=== PATIENT | male | born 1940 | race Caucasian/White ===

== ENCOUNTER → 2020-02-12 11:22 | Outpatient (REF) | payer MEDICARE, SELFPAY ==
--- NOTE | 2020-02-12 11:29 | CA_ITS ---
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 The visually estimated ejection fraction is between 45-50%. - The left atrium is severely dilated. - No obvious valvular pathology seen on this study. Findings Left Ventricle Normal left ventricular cavity size. There is mildly increased left ventricular wall thickness. The left ventricular systolic function is mildly decreased. The visually estimated ejection fraction is between 45-50%. There is no evidence of regional wall motion abnormalities. Diastolic function is indeterminate on the basis of available data. Right Ventricle Normal right ventricular cavity size and systolic function. Atria The left atrium is severely dilated. The right atrium is moderately dilated. Aortic Valve There is a normal trileaflet aortic valve. There is no aortic valve stenosis. There is no aortic valve regurgitation. Mitral Valve The mitral valve appears normal. There is trace mitral valve regurgitation. There is no mitral valve stenosis. Pulmonic Valve The pulmonic valve was not well visualized. Tricuspid Valve The tricuspid valve was not well visualized. There is no tricuspid valve regurgitation. The pulmonary artery systolic pressure is normal. Great Vessels The aortic annulus, sinuses of valsalva, and asc aorta are normal in size. Venous The inferior vena cava is normal in size and collapses greater than 50% with inspiration. Pericardium/Pleural There is no evidence of pericardial effusion. Prior Study Comparison No significant change compared to prior study dated: 11/18/2014. Recommendations, Care & Conclusions No obvious valvular pathology seen on this study. Measurements 2D Linear Measurements IVSd: 1.22 0.6-0.9/0.6-1.0 cm LVIDd: 4.61 3.9-5.3/4.2-5.9 cm LVIDd Index: 2.41 2.4-3.2/2.2-3.1 cm/m2 LVIDs: 3.28 2.0-3.6 cm LVPWd: 1.26 0.7-1.1 cm Ao Root: 4.00 2.1-3.5 cm LA Diam: 4.10 2.7-3.8/3.0-4.0 cm LAIDs Index: 2.15 1.5-2.3 cm/m2 LV Mass: 268.77 67-162/88-224 g LV Mass Index: 140.72 43-95/49-115 g/m2 LVOT Diam: 2.20 3.0+(-)1.3 cm 2D Systolic Function EF 4C: 45.30 >55% EF 2C: 45.40 >55% EF BiP: 43.40 >55% Mitral Valve MV Pk E: 0.81 MV Decel Time: 197.00 E'Medial: 5.61 E/E' Med: 14.30 PHT: 58.00 MVA PHT: 3.79 Decel Brooks: 4.08 Aortic Valve AoV Pk Hayden: 1.12 AoV Mn Hayden: 0.68 AoV VTI: 0.25 AoV Pk Grad: 5.00 Aov Mn Grad: 2.00 MOISES Cont.VTI: 2.30 LVOT LVOT Pk Hayden: 0.70 LVOT Mn Hayden: 0.41 LVOT VTI: 0.15 LVOT Pk Grad: 2.00 LVOT Mn Grad: 1.00 LVOT Diam: 2.20 LVOT Area: 3.80 Diastolic Function MV Pk E: 0.81 E'Medial: 5.61 E/E' Med: 14.30 Tricuspid Valve TR Pk Hayden: 2.46 TR Pk Grad: 24.00 Great Vessels Aorta Ao Root-2D: 4.00 2.0-3.7 cm Ao Asc: 3.60 2.1-3.4 cm Pulmonary Valve PV Pk Hayden: 0.81 Peak PV Grad: 3.00 Updated in Other Vendor System with Status of Final Weston Melgar MD electronically signed on 02/13/2020 12:20:20 PM with status of Final
== END ==
LOC: HO.CARD 11:22
PROVIDERS: PCP Internal Medicine; Visit Provider Internal Medicine
DX: I10 Essential (primary) hypertension (principal); R22.43 Localized swelling, mass and lump, lower limb, bilateral
CPT/HCPCS: 93306

== ENCOUNTER 2020-04-29 11:00 | Outpatient (RCR) | payer MEDICARE, SELFPAY | END 2020-06-04 08:48 | disposition other institution (70) | LOC: HO.PT 11:00 | PROVIDERS: Visit Provider Physician Assistant | DX: M48.061 Spinal stenosis, lumbar region without neurogenic claudication (principal) | CPT/HCPCS: 97110; 97162; 97530 ==

== ENCOUNTER → 2020-05-28 09:18 | Outpatient (BNVA) | payer MEDICARE, SELFPAY | PROVIDERS: PCP Internal Medicine; Visit Provider Urology | DX: Z13.89 Encounter for screening for other disorder (principal) | CPT/HCPCS: Q3014 ==

== ENCOUNTER 2020-12-08 10:20 | Outpatient (REF) | payer MEDICARE, SELFPAY ==
--- NOTE | ~2020-12-08 | XR_ITS ---
EXAMINATION: XR CERVICAL SPINE CLINICAL INFORMATION: Neck pain. COMPARISON: None TECHNIQUE: Seven images are submitted including oblique views. FINDINGS: Significant degeneration here. Significant anterior osteophyte from C2 to C5. Significant degeneration of the posterior elements bilaterally. The oblique imaging showing significant foraminal encroachment on the left at C5-C6 and on the right, more moderate encroachment at C5-6 and C6-7. Cannot exclude an element of chronic compression injury at C6 and C7. XR/XR cervical spine min 6V IMPRESSION: Significant degenerative changes.
== END 2020-12-08 10:21 | disposition home or self-care (01) ==
LOC: HO.XRAY 10:20
PROVIDERS: Absent Provider Internal Medicine; PCP Internal Medicine; Visit Provider Nurse Practitioner Family
DX: M54.2 Cervicalgia (principal)
CPT/HCPCS: 72052

== ENCOUNTER 2021-01-20 11:30 | Emergency (ER) | payer MEDICARE, SELFPAY ==
--- NOTE | ~2021-01-20 | XR_ITS ---
EXAMINATION: XR ABDOMEN KUB CLINICAL INDICATION: Vomiting COMPARISON: Previous CT of the abdomen and pelvis May 2016 TECHNIQUE: AP view of the abdomen. FINDINGS: There are no dilated loops of bowel to suggest obstruction. There is no evidence of free air. No calcifications are seen. There are degenerative changes of the spine and hip joints. XR/XR KUB IMPRESSION: No evidence of obstruction or free air.
[2021-01-20 12:06] VITALS: BP 151/87; PULSE 76; RESP 16; TEMP 36.1; O2SAT 97; BMI 32.3
--- NOTE | 2021-01-20 12:45 | ED_ITS ---
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 He states before 10:00 this morning he was feeling well and had no complaints. He states that after he vomited upon arival he feels good as new. He states he ate a pastry with ground beef and last night that he bough from a restaurant and he thinks that's what made him puke. He has no complaints at this time. He denies abdominal pain, changes in bowel habits, fevers, chills, chest pain, SOB, diarrhea, recent sick contacts, recent travel. He has no previous abdominal surgeries. PMHX significant for cognitive impairment, HLD, HTN, and PAF MD elicited complaint: nausea and vomiting (X1 uppon arrival.) Onset (ago): hour(s) (3 hours. Resolved after vomiting ) Description of vomiting: food contents Associated nausea: Yes Associated abdominal pain: No Location of pain: none Exacerbating factors: none Relieving factors: other (nausea resolved with one episode of vomiting ) Associated symptoms: denies other symptoms Related Data Home Medications Medication Instructions Recorded Confirmed aspirin 81 mg tablet,delayed 81 mg PO DAILY 05/28/20 release azelastine 137 mcg (0.1 %) nasal 2 spray INTRANASAL BID PRN 05/28/20 spray aerosol dabigatran etexilate 150 mg capsule 150 mg PO BID 05/28/20 donepezil 10 mg tablet 10 mg PO BEDTIME 05/28/20 fluticasone propionate 50 1 spray INTRANASAL BID PRN 05/28/20 mcg/actuation nasal spray,suspension gabapentin 100 mg capsule 0 mg PO 05/28/20 latanoprost 0.005 % eye drops 1 drp OPHTHALMIC (EYE) BEDTIME 05/28/20 levothyroxine 100 mcg tablet 100 mcg PO QAM 05/28/20 memantine 10 mg tablet 10 mg PO BID 05/28/20 metoprolol succinate 50 mg 50 mg PO QAM 05/28/20 tablet,extended release 24 hr nifedipine 60 mg tablet,extended 60 mg PO BEDTIME 05/28/20 release 24 hr nifedipine 90 mg tablet,extended 90 mg PO BEDTIME 05/28/20 release pantoprazole 40 mg tablet,delayed 40 mg PO DAILY 05/28/20 release tramadol 50 mg tablet 50 mg PO Q12H PRN 05/28/20 Previous Rx's Medication Instructions Recorded mirabegron 25 mg tablet,extended 25 mg PO DAILY 30 Days #30 tab 09/14/20 release 24 hr (Myrbetriq) tamsulosin 0.4 mg capsule 0.8 mg PO BEDTIME 90 Days #180 cap 12/04/20 Allergies Allergy/AdvReac Type Severity Reaction Status Date / Time verapamil [Verapamil] Allergy Unknown UNKNOWN Unverified 05/28/20 09:35 RIVAS Inhibitors AdvReac Mild ANGIOEDEMA Unverified 05/28/20 09:35 [Rivas Inhibitors] dust Allergy Unknown Unknown Uncoded 05/28/20 09:35 Review of Systems Review of Systems: Constitutional : No Weight loss, No Fever, No Chills, No Fatigue, No Malaise ENT/Mouth : No sore throat, No Rhinorrhea Eyes: No Eye Pain, No Swelling, No Redness Cardiovascular : No Chest Pain, No SOB, No Dyspnea on Exertion, No Orthopnea, No Edema, No Palpitations Respiratory : No Cough, No Sputum, No Wheezing Gastrointestinal : positive Nausea, positive Vomiting, No Diarrhea, No Constipation, No abdominal Pain, No Hematochezia, No Melena Genitourinary : No Dysuria, No Urinary Frequency, No Hematuria, Musculoskeletal : No joint pain, No Myalgias, No Joint Swelling Skin : No Skin Lesions, No rash Neuro : No Weakness, No Numbness, No Dizziness, No Headache Psych : No Anxiety/Panic, No Depression Heme/Lymph: No Bruising, No Bleeding,No Lymphadenopathy Endocrine : No Polyuria, No Polydipsia All other systems reviewed and are negative Gastrointestinal: Gastrointestinal: Reports nausea PMFSH Past Medical History Attestation statement: The following information was validated with the patient. Medical History BPH with obstruction/lower urinary tract symptoms Cognitive impairment HLD (hyperlipidemia) HTN (hypertension) PAF (paroxysmal atrial fibrillation) Urge incontinence Social History Social History (Updated 01/20/21 @ 12:46 by Jackie Rivers DO) Patient Tobacco Use Status: Never used Tobacco Use of substances other than those prescribed or required for medical reasons: No Advance Directives: No Advance Directives Information Provided: No Physical Exam Vital Signs: Vital Signs: Last Vital Signs Temp 97.6 F 01/20/21 14:51 Pulse 89 01/20/21 14:51 Resp 15 01/20/21 14:51 BP 137/101 H 01/20/21 14:51 Pulse Ox 93 01/20/21 14:51 Body Mass Index 32.3 Appearance: Alert. Oriented X3. No acute distress. Eyes: Pupils equal, round and reactive to light. ENT: Pharynx normal. Neck: Normal inspection. Neck supple. CVS: Normal heart rate and rhythm. Pulses normal. Respiratory: No respiratory distress. Breath sounds normal. Abdomen: Soft and nontender. Normoactive bowel sounds Skin: Skin warm and dry. Normal skin color. Normal skin turgor. Extremities: No lower extremity edema. No calf ttp Neuro: Oriented X 3. No motor deficit. No sensory deficit. 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 He states he thinks he at a bad beef pastry last night. He is a poor historian. He reports no other complaints. Based of the patient history and patients vague complaints the following workup will be done Plan- EKG, KUB, UA, CBC, COVID, Liver panel, Mag, BMP, lipase, tropX2 Lab Data Result diagrams: 01/20/21 13:28 01/20/21 13:28 Labs: Lab Results 01/20/21 01/20/21 01/20/21 Range/Units 13:28 13:28 13:28 WBC 7.2 (4.8-10.8) X10*3/uL RBC 4.28 L (4.60-5.80) X10*6/uL Hgb 13.6 L (14.0-18.0) g/dl Hct 42.6 (42-52) % MCV 99.5 H (80-98) fL MCH 31.8 (27.0-33.0) pg MCHC 31.9 (31.0-36.0) g/dl RDW 13.2 (11.0-16.0) % Plt Count 164 (160-400) X10*3/uL MPV 10.2 (9.4-12.4) fL Immature Gran % (Auto) 0.4 (0.0-0.4) % Neut % (Auto) 71.9 (45-73) % Lymph % (Auto) 20.0 (20-40) % [place] % (Auto) 5.8 (2-11) % Eos % (Auto) 1.8 (0-4) % Baso % (Auto) 0.1 (0-2) % Lymph # (Auto) 1.4 (1.2-4.9) X10*3/uL [place] # (Auto) 0.4 (0.1-1.2) X10*3/uL Eos # (Auto) 0.1 (0.0-0.4) X10*3/uL Baso # (Auto) 0.0 (0.0-0.2) X10*3/uL Abs Immat Gran (auto) 0.03 (0.00-0.03) X10*3/uL Absolute Neuts (auto) 5.2 (2.0-8.3) X10*3/uL Absolute Nucleated RBC 0.000 (0.0-0.012) X10*3/uL Nucleated RBC % (auto) 0.0 (0.0-0.2) /100WBC Sodium 146 H (135-145) mmol/L Potassium 4.3 (3.3-5.1) mmol/L Chloride 109 H (96-108) mmol/L Carbon Dioxide 28 (22-29) mmol/L Anion Gap 13 (12-20) BUN 20 H (9-16) mg/dL Creatinine 1.31 (0.5-1.4) mg/dL Estim Creat Clear Calc 48.2 Estimated GFR 53 Random Glucose 122 H (60-115) mg/dL Calcium 9.4 (8.4-10.2) mg/dL Magnesium 2.0 (1.6-2.6) mg/dL Total Bilirubin 0.5 (0.0-1.0) mg/dL Direct Bilirubin 0.2 (0.0-0.5) mg/dL AST 28 (5-37) U/L ALT 19 (0-40) U/L Alkaline Phosphatase 88 (39-117) U/L Troponin I High Sens (<3.5-35.0) ng/L Total Protein 8.2 H (6.5-8.0) g/dL Albumin 4.2 (3.5-5.0) g/dL Lipase 107 H (8-78) U/L Urine Color Urine Appearance Urine pH (5.0-8.0) Ur Specific [place] (1.005-1.025) Urine Protein (NEG-TRACE) MG/DL Urine Glucose (UA) (NEG) MG/DL Urine Ketones (NEG) MG/DL Urine Blood (NEG) Urine Nitrite (NEG) Ur Leukocyte Esterase (NEG) Urine RBC (0) /HPF Urine WBC (0-4) /HPF Ur Squamous Epith Cells /LPF Ur Renal Epithelial Cell /LPF Urine Bacteria /LPF Urine Mucus /LPF COVID-19 (JIM) Negative (Negative) COVID-19 Clin Com See Note 01/20/21 01/20/21 Range/Units 13:28 14:48 WBC (4.8-10.8) X10*3/uL RBC (4.60-5.80) X10*6/uL Hgb (14.0-18.0) g/dl Hct (42-52) % MCV (80-98) fL MCH (27.0-33.0) pg MCHC (31.0-36.0) g/dl RDW (11.0-16.0) % Plt Count (160-400) X10*3/uL MPV (9.4-12.4) fL Immature Gran % (Auto) (0.0-0.4) % Neut % (Auto) (45-73) % Lymph % (Auto) (20-40) % [place] % (Auto) (2-11) % Eos % (Auto) (0-4) % Baso % (Auto) (0-2) % Lymph # (Auto) (1.2-4.9) X10*3/uL [place] # (Auto) (0.1-1.2) X10*3/uL Eos # (Auto) (0.0-0.4) X10*3/uL Baso # (Auto) (0.0-0.2) X10*3/uL Abs Immat Gran (auto) (0.00-0.03) X10*3/uL Absolute Neuts (auto) (2.0-8.3) X10*3/uL Absolute Nucleated RBC (0.0-0.012) X10*3/uL Nucleated RBC % (auto) (0.0-0.2) /100WBC Sodium (135-145) mmol/L Potassium (3.3-5.1) mmol/L Chloride (96-108) mmol/L Carbon Dioxide (22-29) mmol/L Anion Gap (12-20) BUN (9-16) mg/dL Creatinine (0.5-1.4) mg/dL Estim Creat Clear Calc Estimated GFR Random Glucose (60-115) mg/dL Calcium (8.4-10.2) mg/dL Magnesium (1.6-2.6) mg/dL Total Bilirubin (0.0-1.0) mg/dL Direct Bilirubin (0.0-0.5) mg/dL AST (5-37) U/L ALT (0-40) U/L Alkaline Phosphatase (39-117) U/L Troponin I High Sens 9.2 (<3.5-35.0) ng/L Total Protein (6.5-8.0) g/dL Albumin (3.5-5.0) g/dL Lipase (8-78) U/L Urine Color YELLOW Urine Appearance CLEAR Urine pH 6.0 (5.0-8.0) Ur Specific [place] >= 1.030 H (1.005-1.025) Urine Protein 1+ H (NEG-TRACE) MG/DL Urine Glucose (UA) NEG (NEG) MG/DL Urine Ketones NEG (NEG) MG/DL Urine Blood 1+ H (NEG) Urine Nitrite NEG (NEG) Ur Leukocyte Esterase NEG (NEG) Urine RBC 1-4 (0) /HPF Urine WBC 0 (0-4) /HPF Ur Squamous Epith Cells 1+ /LPF Ur Renal Epithelial Cell TRACE /LPF Urine Bacteria TRACE /LPF Urine Mucus 2+ /LPF COVID-19 (JIM) (Negative) COVID-19 Clin Com ECG Data Attestation: I personally reviewed and interpreted this ECG as follows: ECG interpretation date: 01/20/21 ECG interpretation time: 14:06 Interpretation: Rate: 79 Rhythm: afib [place]: left Normal QRS complex. ST T wave : nonspecific, no OMKAR< inverted t waves in anterior lateral leads qTC: normal prior studies: changed from 2015 The study has been interpreted contemporaneously by me. . Discharge Plan Discharge Clinical Impression: Nausea Instructions: Acute Nausea and Vomiting (ED) Additional Instructions: return to ED for any worsening symptoms or concerns Prescriptions: No Action Myrbetriq 25 mg tablet extended release 24 hr 25 mg PO DAILY 30 Days Qty: 30 RF: 6 tamsulosin 0.4 mg capsule 0.8 mg PO BEDTIME 90 Days Qty: 180 RF: 0 gabapentin 100 mg capsule 0 mg PO RF: 0 tramadol 50 mg tablet 50 mg PO Q12H PRN (Reason: severe pain) RF: 0 aspirin 81 mg tablet,delayed release (DR/EC) 81 mg PO DAILY RF: 0 pantoprazole 40 mg tablet,delayed release (DR/EC) 40 mg PO DAILY RF: 0 levothyroxine 100 mcg tablet 100 mcg PO QAM RF: 0 nifedipine 60 mg tablet extended release 24hr 60 mg PO BEDTIME RF: 0 Pradaxa 150 mg capsule 150 mg PO BID RF: 0 fluticasone propionate 50 mcg/actuation spray,suspension 1 spray intranasal BID PRNRF: 0 memantine 10 mg tablet 10 mg PO BID RF: 0 donepezil 10 mg tablet 10 mg PO BEDTIME RF: 0 metoprolol succinate 50 mg tablet extended release 24 hr 50 mg PO QAM RF: 0 azelastine 137 mcg (0.1 %) aerosol,spray 2 spray intranasal BID PRN (Reason: congestion) RF: 0 nifedipine 90 mg tablet extended release 90 mg PO BEDTIME RF: 0 latanoprost 0.005 % drops 1 drp ophthalmic (eye) BEDTIME RF: 0 Print Language: Pashto
--- NOTE | 2021-01-20 12:51 | ECG_ITS ---
Test Reason : NAUSEA VOMIT Blood Pressure : / mmHG Vent. Rate : 079 BPM Atrial Rate : 326 BPM P-R Int : 000 ms QRS Dur : 114 ms QT Int : 416 ms P-R-T Axes : 000 -44 -16 degrees QTc Int : 477 ms Atrial fibrillation Left axis deviation ST & T wave abnormality, consider anterolateral ischemia Prolonged QT Abnormal ECG When compared with ECG of 21-DEC-2014 23:15, Significant changes have occurred Referred By: Jackie Rivers Electronically Signed By:KATELYN NAJERA
[2021-01-20 13:35] LABS: MANUAL DIFF FLAG NO
[2021-01-20 13:36] LABS: Basophils Percent Auto 0.1 % (0-2); Eosinophils Absolute Auto 0.1 X10*3/uL (0.0-0.4); Eosinophils Percent Auto 1.8 % (0-4); Hematocrit 42.6 % (42-52); Hemoglobin 13.6 g/dl (14.0-18.0); Imm Gran Abs Auto 0.03 X10*3/uL (0.00-0.03); Imm Gran Pct Auto 0.4 % (0.0-0.4); Lymphocytes Absolute Auto 1.4 X10*3/uL (1.2-4.9); Mean Corpuscular HGB Conc 31.9 g/dl (31.0-36.0); Mean Corpuscular Hemoglobin 31.8 pg (27.0-33.0); Mean Corpuscular Volume 99.5 fL (80-98); Mean Platelet Volume 10.2 fL (9.4-12.4); Monocytes Absolute Auto 0.4 X10*3/uL (0.1-1.2); Monocytes Percent Auto 5.8 % (2-11); Neutrophils Absolute Auto 5.2 X10*3/uL (2.0-8.3); Neutrophils Percent Auto 71.9 % (45-73); Platelet Count 164 X10*3/uL (160-400); Red Blood Count 4.28 X10*6/uL (4.60-5.80); Red Cell Distribution Width 13.2 % (11.0-16.0); White Blood Count 7.2 X10*3/uL (4.8-10.8)
[2021-01-20 13:51] LABS: COVID-19 Test Negative (Negative); IDNOW Serial# 9DD0AD1C
[2021-01-20 14:01] LABS: Troponin-I High Sensitivity 9.2 ng/L (<3.5-35.0)
[2021-01-20 14:03] LABS: Alanine Aminotransferase 19 U/L (0-40); Albumin Level 4.2 g/dL (3.5-5.0); Alkaline Phosphatase 88 U/L (39-117); Anion Gap 13 (12-20); Aspartate Amino Transferase 28 U/L (5-37); Bilirubin Direct 0.2 mg/dL (0.0-0.5); Bilirubin Total 0.5 mg/dL (0.0-1.0); Blood Urea Nitrogen 20 mg/dL (9-16); Calcium 9.4 mg/dL (8.4-10.2); Carbon Dioxide 28 mmol/L (22-29); Chloride 109 mmol/L (96-108); Creatinine Clr Calc Pharmacy 48.2; Estimated Glomerular Filt Rate 53; Glucose Random 122 mg/dL (60-115); Lipase 107 U/L (8-78); Potassium 4.3 mmol/L (3.3-5.1); Sodium 146 mmol/L (135-145); Total Protein 8.2 g/dL (6.5-8.0)
[2021-01-20 14:51] VITALS: BP 137/101; PULSE 89; RESP 15; TEMP 36.4; O2SAT 93
[2021-01-20 15:05] LABS: Appearance Urine CLEAR; Color Urine YELLOW; Glucose Urine UA NEG (NEG); Leukocyte Esterase Urine NEG (NEG); Nitrite Urine NEG (NEG); Specific Gravity - Urine >= 1.030 (1.005-1.025); UACC Culture Trigger NO; Urine Blood 1+ (NEG); Urine Ketones NEG (NEG); Urine Protein 1+ MG/DL (NEG-TRACE)
[2021-01-20 15:16] LABS: Mucus Urine 2+ /LPF; Renal Epithelial Cells Urine TRACE /LPF; Squamous Epithelial Cell Urine 1+ /LPF
[2021-01-20 15:17] LABS: Bacteria Urine TRACE /LPF; WBC Urine 0 /HPF (0-4)
[2021-01-20 16:23] VITALS: BP 141/92; PULSE 78; RESP 16; TEMP 36.7; O2SAT 96
== END 2021-01-20 18:15 | disposition home or self-care (01) ==
PROVIDERS: Emergency Provider Emergency Medicine; PCP Internal Medicine
DX: R11.2 Nausea with vomiting, unspecified (principal); R19.7 Diarrhea, unspecified; R10.9 Unspecified abdominal pain; Z20.822 Contact with and (suspected) exposure to COVID-19; Z79.899 Other long term (current) drug therapy
CPT/HCPCS: 36415; 74018; 80048; 80076; 81001; 81003; 83690; 83735; 84484; 85025; 87635; 93005; 99283; 99284

== ENCOUNTER 2022-03-31 08:47 | Outpatient (REF) | payer MEDICARE, SELFPAY ==
--- NOTE | ~2022-03-31 | US_ITS ---
EXAMINATION: US THYROID CLINICAL INFORMATION: Hypothyroidism. COMPARISON: Ultrasound soft tissue head/neck thyroid dated 08/23/2017 and 08/16/2016. TECHNIQUE: Linear transducer grayscale and color Doppler examination with attention to the region of the thyroid. FINDINGS: SIZE: Measurements of the thyroid lobes and nodules are given in sagittal, anteroposterior and transverse dimensions respectively. Right Thyroid Lobe: 4.2 x 0.9 x 1.7 cm, volume 3.2 mL. Previously 4.4 x 1.2 x 1.7 cm, volume 4.7 mL. Parenchyma: The gland echotexture is normal. Thyroid vascularity is slightly increased. Left Thyroid Lobe: 3.1 x 0.9 x 1.2 cm, volume 1.8 mL. Previously 4.4 x 1.0 x 1.6 cm, volume 3.7 mL. Parenchyma: The gland echotexture is slightly heterogeneous. Thyroid vascularity is slightly increased. Isthmus: 0.1 cm in maximum AP dimension. Previously 0.2 cm. Estimated total number of nodules greater than or equal to 1 cm: 0. Burner Tender nodules are described as follows: 1. Location: Right mid. Size: 0.8 x 0.3 x 0.6 cm, volume 0.09 mL. Previously: 0.9 x 0.5 x 1.1 cm, volume 0.3 mL. Nodule characteristics: Composition: Solid/almost completely solid (2). Echogenicity: Isoechoic (1). Shape: Not taller than wide (0). Margins: Smooth (0). Echogenic Foci: None (0). ACR TI-RADS total points: 3 ACR TI-RADS category: 3 Significant change in size (>/= 20% in 2 dimensions and minimal increase of 2 mm or 50% or greater increase in volume): Change in features: Change in ACR TI-RADS risk category: NODES: No lymphadenopathy is seen in the tissue surrounding the thyroid gland. US/US thyroid IMPRESSION: Small thyroid gland. Stable right thyroid nodule. Previously identified left thyroid cystic nodule not appreciated. ACR TI-RADS RECOMMENDATION REFERENCE: Ultrasound-guided fine-needle aspiration, followup ultrasound, no further follow up. * TR1 (0 point) and TR 2 (2 points): No FNA or follow up * TR3 (3 points): FNA if more than or equal to 2.5 cm in maximum dimension, followup ultrasound in 1, 3 and 5 years if 1.5 to 2.4 cm in maximum dimension. * TR4 (4-6 points): FNA if more than or equal to 1.5 cm in maximum dimension, followup ultrasound in 1, 2, 3 and 5 years if 1 to 1.4 cm in maximum dimension. * TR5 (more than or equal to 7 points): FNA if more than or equal to 1 cm in maximum dimension, followup ultrasound every year for 5 years if 0.5 to 0.9 cm in maximum dimension. * TR3, TR4 or TR5 nodules that are below the size threshold for follow up receive no follow up.
== END 2022-03-31 08:48 | disposition home or self-care (01) ==
LOC: HO.US 08:47
PROVIDERS: Visit Provider Internal Medicine
DX: E03.9 Hypothyroidism, unspecified (principal)
CPT/HCPCS: 76536

== ENCOUNTER 2023-01-26 18:18 | Outpatient (REF) | payer MEDICARE, SELFPAY | END 2023-01-26 18:19 | disposition home or self-care (01) | LOC: HO.HHCLNP 18:18 | PROVIDERS: Visit Provider Registered Nurse | DX: G89.29 Other chronic pain (principal) | CPT/HCPCS: 87070; 87147 ==

== ENCOUNTER 2023-01-30 14:54 | Outpatient (AMB) | payer MEDICARE, SELFPAY ==
--- NOTE | 2023-01-30 14:57 | A.OFFVIS_ITS ---
Intake Vital Signs 01/30/23 14:58 Height 5 ft 6 in Weight 192 lb BMI 31.0 BP 120/71 Blood Pressure Location Rt brachial Position Sitting Pulse 63 Intake Visit Reasons: Abdomnial pain Intake Note: Patient presents to in office visit today as a new patient for abdominal pain. CC:Patient c/o abdominal pain. His PCP reports that before every meal the PT takes an ahmet seltzer because the PT states this is the only way he gets an appetite. He also reports occasional acid reflux. Unknown when last colonoscopy was done. Coagulating Bath Mixer Required: Yes Accompanied by: PROM BURN OFF OPERATOR Allergies verapamil [Verapamil] Allergy (Unknown, Verified 01/30/23 15:05) UNKNOWN RIVAS Inhibitors [Rivas Inhibitors] Adverse Reaction (Mild, Verified 01/30/23 15:05) ANGIOEDEMA dust Allergy (Unknown, Uncoded 05/28/20 09:35) Unknown Medication List - Last Reconciled 01/30/23 by Rashida Mcconnell, [facility]- aspirin 81 mg PO DAILY atorvastatin 80 mg PO DAILY azelastine 2 sprays intranasal BID PRN dabigatran etexilate 150 mg PO BID docusate sodium 100 mg PO DAILY donepezil 10 mg PO BEDTIME fluticasone propionate 50 mcg/actuation 1 spray intranasal BID PRN gabapentin 100 mg PO latanoprost 0.005% 1 drp ophthalmic (eye) BEDTIME levothyroxine 100 mcg PO QAM melatonin 5 mg PO BEDTIME memantine 10 mg PO BID metoprolol succinate ER 50 mg PO QAM mirabegron ER (Myrbetriq) 25 mg PO DAILY 90 days multivitamin 1 tab PO DAILY nifedipine ER 60 mg PO BEDTIME nifedipine ER 90 mg PO BEDTIME nifedipine ER 30 mg PO DAILY pantoprazole 40 mg PO DAILY tamsulosin 0.8 mg (2 x 0.4 mg) PO BEDTIME 90 days tramadol 50 mg PO Q12H PRN HPI Abdomnial pain HPI Details 82-year-old male with past medical histo ry of PAF, hyperlipidemia, hypertension, BPH is here today for initial consultation. Patient is accompanied by his PROM BURN OFF OPERATOR. PROM BURN OFF OPERATOR states that patient has been complaining of epigastric discomfort and postprandial abdominal bloating. Frequently before he eats he is asking for Ahmet-[place]. Patient reports to be feeling bloated. Denies any dyspepsia, dysphagia or odynophagia. Reports to be constipated. No bowel movement sometimes for 3-4 days. Patient denies any melena, hematochezia, unintentional weight loss or ribbon like stools. Patient denies any vomiting. Patient is not on any particular diet. Patient mostly eats [place]ian food. Not many vegetables. Patient drinks very little water. [facility] Medical History PAF (paroxysmal atrial fibrillation) Cognitive impairment HLD (hyperlipidemia) HTN (hypertension) Urge incontinence BPH with obstruction/lower urinary tract symptoms Surgical History H/O eye surgery Social History Alcohol intake: current Alcohol intake frequency: former alcohol drinker Patient Tobacco Use Status: Never used Tobacco Review of Systems Const Denies weight gain and Denies weight loss ENT Reports no additional complaints, Denies dysphagia and Denies odynophagia Card Reports no additional complaints Resp Reports no additional complaints GI Denies abdominal pain, Denies belching, Denies melena, Reports bloating, Denies change in bowel habits, Reports constipation, Denies dysphagia, Denies excessive flatus, Denies dyspepsia, Denies heartburn, Denies diarrhea, Denies loose stools, Reports nausea, Denies odynophagia and Denies vomiting Reports no additional complaints Musc Reports no additional complaints Neuro Reports no additional complaints Psych Reports no additional complaints Endo Reports no additional complaints Physical Exam Vital Signs: Last Vital Signs Pulse 63 01/30/23 14:58 BP 120/71 01/30/23 14:58 BMI result Body Mass Index 31.0 Const General: healthy appearing, no acute distress and well developed Nutritional Appearance: obese Orientation/consciousness: patient oriented x3 HEENT Head: Yes normal to inspection, Yes normocephalic and Yes atraumatic Face and sinus: Yes normal facial exam Mouth: Normal oral and palatal mucosa present Throat: Yes posterior oropharynx normal, Yes tonsils normal and Yes uvula midline Eyes General: appearance normal, both eyes and all related structures Neck Neck: Yes normal visual inspection, Yes full ROM and Yes trachea midline Thyroid: Thyroid normal Resp Effort & Inspection: normal respiratory effort, able to speak in complete sentences, no tracheal deviation and symmetric chest movement Auscultation: clear to auscultation bilaterally Cardio Rate: regular rate Heart sounds: S1 normal heart sound present and S2 normal heart sound present GI Inspection: Yes normal to inspection, No distended and Yes obesity Palpation (GI): Soft to palpation, not firm, nontender and No hepatosplenomegaly present Auscultation: normal bowel sounds General: Yes no CVA tenderness Back/Spine/Pelvis Back: no CVA tenderness Skin General skin exam: elasticity normal, turgor normal and dry skin Neuro General: patient oriented x3 Psych Appearance: grossly normal Mental Status: mental status grossly normal Speech and movement: Normal speech and movement present Assessment & Plan Assessment & Plan (1) Nausea: Code(s): R11.0 - Nausea (2) Postprandial abdominal bloating: Code(s): R14.0 - Abdominal distension (gaseous) (3) IBS (irritable bowel syndrome): Code(s): K58.9 - Irritable bowel syndrome without diarrhea Qualifiers: Irritable bowel syndrome type: without diarrhea Qualified Code(s): K58.9 - Irritable bowel syndrome without diarrhea (4) Constipation: Code(s): K59.00 - Constipation, unspecified Qualifiers: Constipation type: slow transit constipation Qualified Code(s): K59.01 - Slow transit constipation Plan Will send patient for lab work. Patient does report epigastric discomfort and postprandial abdominal bloating. Will check for pancreatic insufficiency, pancreatitis. Will check liver profile. Patient reports to be constipated will start him on MiraLax and senna. Patient will follow-up in the office in 6 months, sooner on as needed basis. Both patient and PROM BURN OFF OPERATOR are agreeable to this plan and verbalize understanding of instructions. They were given the opportunity to ask questions and all questions answered. Thank you for allowing me to participate in his care Orders: Orders Vitamin B12 and Folate 01/30/23 R11.0 - Nausea Vitamin D 25-OH (D2 and D3) 01/30/23 R11.0 - Nausea Pancreatic Elastase-1 01/30/23 R14.0 - Abdominal distension (gaseous) Lipase 01/30/23 R10.9 - Unspecified abdominal pain Liver Panel 01/30/23 R11.0 - Nausea Medications: New polyethylene glycol 3350 (Miralax) 17 grams PO DAILY 510 grams 2RF sennosides (Natural Senna Laxative) 17.2 mg (2 x 8.6 mg) PO BEDTIME 60 tabs 3RF constipation K59.00 - Constipation, unspecified Coding Level of Care Code New Pt Level 4 (71711) Diagnoses Nausea R11.0 Postprandial abdominal bloating R14.0 Irritable bowel syndrome without diarrhea K58.9 Irritable bowel syndrome type: without diarrhea Slow transit constipation K59.01 Constipation type: slow transit constipation Time Spent (min) 45 Comment 30 minutes spent with patient and additional 15 minutes spent reviewing his records.
[2023-01-30 14:58] VITALS: BP 120/71; PULSE 63; BMI 31.0
== END 2023-01-30 15:36 | disposition home or self-care (01) ==
PROVIDERS: PCP Internal Medicine; Visit Provider Nurse Practitioner Family
DX: R11.0 Nausea (principal); R14.0 Abdominal distension (gaseous); K58.9 Irritable bowel syndrome, unspecified; K59.01 Slow transit constipation
CPT/HCPCS: 99204

== ENCOUNTER → 2023-01-30 14:54 | Outpatient (BNVA) | payer MEDICARE, SELFPAY | PROVIDERS: PCP Internal Medicine; Visit Provider Nurse Practitioner Family ==

== ENCOUNTER 2023-03-08 13:03 | Outpatient (REF) | payer MEDICARE, SELFPAY ==
[2023-03-08 16:36] LABS: Alanine Aminotransferase 14 U/L (0-40); Alkaline Phosphatase 91 U/L (39-117); Aspartate Amino Transferase 21 U/L (5-37); Bilirubin Direct 0.4 mg/dL (0.0-0.5); Lipase 35 U/L (8-78); Total Protein 8.5 g/dL (6.5-8.0)
[2023-03-08 17:11] LABS: Folate 13.9 ng/mL (> or = 4.0); Vitamin B12 306 pg/mL (200-900)
[2023-03-11 15:43] LABS: Vitamin D 25-OH, D2 12 ng/mL; Vitamin D 25-OH, D3 17 ng/mL; Vitamin D 25-OH, Total 29 ng/mL (30-100)
== END 2023-03-08 13:04 | disposition home or self-care (01) ==
LOC: HO.HHCL 13:03
PROVIDERS: Visit Provider Nurse Practitioner Family
DX: R11.0 Nausea (principal); R10.9 Unspecified abdominal pain; R14.0 Abdominal distension (gaseous); E55.9 Vitamin D deficiency, unspecified
CPT/HCPCS: 36415; 80076; 82306; 82607; 82746; 83690

== ENCOUNTER 2023-04-26 12:53 | Outpatient (REF) | payer MEDICARE, SELFPAY ==
[2023-05-04 16:53] LABS: Pancreatic Elastase-1 306 mcg/g
== END 2023-04-26 12:54 | disposition home or self-care (01) ==
LOC: HO.HHCLNP 12:53
PROVIDERS: Visit Provider Nurse Practitioner Family
DX: R14.0 Abdominal distension (gaseous) (principal)
CPT/HCPCS: 82656

== ENCOUNTER 2023-05-15 14:39 | Outpatient (AMB) | payer MEDICARE, SELFPAY ==
--- NOTE | 2023-05-15 15:07 | A.OFFVIS_ITS ---
Intake Intake Visit Reasons: Stress Incontinence Intake Note: Patient presents today for a follow-up on Stress Incontinence: Meds- None Allergies to Antibiotic- No Known Allergies Blood Thinner- None Post Void Residual: 0 mL Information Resources Manager Required: Yes Information Resources Manager Language: Precision Devices Inspector/Tester Name: SHABBIR Braga Information Interpreted: non-clinical & clinical Accompanied by: Self / Same As Patient Allergies verapamil [Verapamil] Allergy (Unknown, Verified 05/15/23 15:09) UNKNOWN RIVAS Inhibitors [Rivas Inhibitors] Adverse Reaction (Mild, Verified 05/15/23 15:09) ANGIOEDEMA dust Allergy (Unknown, Uncoded 05/15/23 15:09) Unknown HPI HPI Comments History of Present Illness Details Jewel is a 83 year male who is here for evaluation for BPH and urinary incontinence. Past Medical history PAF (paroxysmal atrial fibrillation), Cognitive impairment, Hypertension The patient complains of daytime urinary frequency every 2-3 hours, he has ocassional urinary incontinence, if he has a strong urge and is not able to get to the bathroom, nocturia 2-4 times, denies hematuria, denies dysuria. I have discussed avoiding dietary bladder irritants, including to cut back on c affeine usage I have discussed workup to include evaluation of the upper tracts and consideration for cystoscopy evaluation. Bladder scan PVR - 0 mL Plan: Renal US PFSH Medical History PAF (paroxysmal atrial fibrillation) Cognitive impairment HLD (hyperlipidemia) HTN (hypertension) Urge incontinence BPH with obstruction/lower urinary tract symptoms Surgical History H/O eye surgery Social History Alcohol intake: current Alcohol intake frequency: former alcohol drinker Patient Tobacco Use Status: Never used Tobacco Review of Systems Const All systems reviewed & are unremarkable except as noted in HPI and below Reports no additional complaints Eyes Reports no additional complaints ENT Reports no additional complaints Card Denies dyspnea Resp Denies cough and Denies dyspnea GI Reports no additional complaints Musc Reports no additional complaints Skin/Breast Denies rash and Denies unusual bruising Neuro Reports no additional complaints Psych Reports no additional complaints Endo Reports no additional complaints Rei/Lymph Reports no additional complaints Aller/Immun Reports no additional complaints Physical Exam Const General: healthy appearing, no acute distress and well developed Orientation/consciousness: patient oriented x3 HEENT Head: Yes normocephalic and Yes atraumatic Eyes Conjunctivae: conjunctivae normal Neck Neck: Yes normal visual inspection Chest Chest palpation & inspection: normal inspection of the chest Resp Effort & Inspection: normal respiratory effort Cardio Rate: regular rate GI Inspection: Yes normal to inspection Other: Prostate Exam: mild to moderately enlarged Neuro General: patient oriented x3 Psych Appearance: grossly normal Affect: normal affect Office Procedures Post Void Residual Post Residual Void Post Void Residual (PVR): 0 [id number] Void Residual by ultrasound Results AMB Urinalysis, Automated UA Leukoctes 0 Arnulfo/uL Last Edit by SHABBIR Braga on 05/15/23 15:11 UA Nitrite Negative Last Edit by SHABBIR Braga on 05/15/23 15:11 UA Urobilinogen 30 mg/dL Last Edit by SHABBIR Braga on 05/15/23 15:11 1+ Obdulia Eddy 05/15/23 15:11 UA Protein 30 mg/dL Last Edit by SHABBIR Braga on 05/15/23 15:11 1+ Obdulia Eddy 05/15/23 15:11 UA pH 6.0 Last Edit by SHABBIR Braga on 05/15/23 15:11 UA Blood 0 Josh/uL Last Edit by SHABBIR Braga on 05/15/23 15:11 UA Specific [place]lis 1.025 Last Edit by SHABBIR Braga on 05/15/23 15: 11 UA Ketone Negative Last Edit by SHABBIR Braga on 05/15/23 15:11 UA Bilirubin 1 mg/dL Last Edit by SHABBIR Braga on 05/15/23 15:11 1+ Obdulia Eddy 05/15/23 15:11 UA Glucose 0 mg/dL Last Edit by SHABBIR Braga on 05/15/23 15:11 Results Reviewed Results Reviewed: Laboratory Last Values Urine pH (Auto) 6.0 05/15/23 15:09 Specific [place]lis (Auto) 1.025 05/15/23 15:09 Urine Protein (Auto) 30 mg/dL 05/15/23 15:09 Glucose (UA)(Auto) 0 mg/dL 05/15/23 15:09 Urine Ketones (Auto) Negative 05/15/23 15:09 Urine Blood (Auto) 0 Josh/uL 05/15/23 15:09 Urine Nitrite (Auto) Negative 05/15/23 15:09 Urine Bilirubin (Auto) 1 mg/dL 05/15/23 15:09 Urine Urobilinogen (Auto) 30 mg/dL 05/15/23 15:09 Leukocyte Esterase (Auto) 0 Arnulfo/uL 05/15/23 15:09 Assessment & Plan Assessment & Plan (1) Urge incontinence: Code(s): N39.41 - Urge incontinence (2) BPH with obstruction/lower urinary tract symptoms: Code(s): N40.1 - Benign prostatic hyperplasia with lower urinary tract symptoms; N13.8 - Other obstructive and reflux uropathy Plan Renal US Orders: Orders AMB Urinalysis Automated 05/15/23 Z13.9 - Encounter for screening, unspecified AMB Post Void Residual by ultrasound 05/15/23 N39.8 - Other specified disorders of urinary system Coding Level of Care Code New Pt Level 3 (49013) Diagnoses Urge incontinence N39.41 BPH with obstruction/lower urinary tract symptoms N40.1; N13.8 CPT Codes Post Residual Void - PVR CPT Code: 47866-[id number] Void Residual by ultrasound ([id number])
== END 2023-05-15 15:45 | disposition home or self-care (01) ==
PROVIDERS: PCP Internal Medicine; Visit Provider Urology
DX: N39.41 Urge incontinence (principal); N40.1 Benign prostatic hyperplasia with lower urinary tract symptoms; N13.8 Other obstructive and reflux uropathy
CPT/HCPCS: 99203

== ENCOUNTER → 2023-05-15 14:39 | Outpatient (BNVA) | payer MEDICARE, SELFPAY | PROVIDERS: PCP Internal Medicine; Visit Provider Urology | DX: N40.1 Benign prostatic hyperplasia with lower urinary tract symptoms (principal); N39.41 Urge incontinence; N13.8 Other obstructive and reflux uropathy | CPT/HCPCS: 51798; 81003; 99202 ==

== ENCOUNTER 2023-08-10 15:03 | Outpatient (AMB) | payer MEDICARE, SELFPAY ==
[2023-08-10 15:10] VITALS: BP 146/84; PULSE 62; BMI 31.0
--- NOTE | 2023-08-10 15:10 | A.OFFVIS_ITS ---
Vital Signs 08/10/23 15:10 Height 5 ft 6 in Weight 192 lb 3.889 oz BMI 31.0 BP 146/84 H Blood Pressure Location Rt brachial Position Sitting Pulse 62 Intake Visit Reasons: 6M follow up Intake Note: Patient presents to in office visit today in 6 months follow up of labs. CC: Patient c/o constant nausea and constipation. Patient continues taking an ahmet-seltzer before every meal. Transfer Coordinator Required: Yes Accompanied by: SUPERVISOR BOATBUILDERS WOOD Allergies verapamil [Verapamil] Allergy (Unknown, Verified 08/10/23 15:14) UNKNOWN RIVAS Inhibitors [Rivas Inhibitors] Adverse Reaction (Mild, Verified 08/10/23 15:14) ANGIOEDEMA dust Allergy (Unknown, Uncoded 05/15/23 15:09) Unknown HPI HPI 6M follow up: Details: LAST VISIT: Nausea Postprandial abdominal bloating IBS (irritable bowel syndrome) Constipation Plan Will send patient for lab work. Patient does report epigastric discomfort and postprandial abdominal bloating. Will check for pancreatic insufficiency, pancreatitis. Will check liver profile. Patient reports to be constipated will start him on MiraLax and senna. Patient will follow-up in the office in 6 months, sooner on as needed basis. Both patient and SUPERVISOR BOATBUILDERS WOOD are agreeable to this plan and verbalize understanding of instructions. They were given the opportunity to ask questions and all questions answered. ? Thank you for allowing me to participate in his care Orders Orders Vitamin B12 and Folate 01/30/23 R11.0 Vitamin D 25-OH (D2 and D3) 01/30/23 R11.0 Pancreatic Elastase-1 01/30/23 R14.0 Lipase 01/30/23 R10.9 Liver Panel 01/30/23 R11.0 Medications New polyethylene glycol 3350 (Miralax) 17 grams PO DAILY 510 grams 2RF sennosides (Natural Senna Laxative) 17.2 mg (2 x 8.6 mg) PO BEDTIME 60 tabs 3RF constipation K59.00 TODAY'S VISIT Patient is here today for follow-up and to discuss lab results. Patient had normal liver function, pancreatic enzymes. We did rule out pancreatic insufficiency. Patient continues to be constipated and reports to have epigastric discomfort. Patient is accompanied by his SUPERVISOR BOATBUILDERS WOOD. Patient continues to take Ahmet[place] every time he has to eat. Patient is taking pantoprazole every morning half an hour before breakfast. For the most part his symptoms are suppressed, SUPERVISOR BOATBUILDERS WOOD thinks that patient is taking because he is afraid he will feel epigastric pain with food. Patient is taking senna on as-needed basis. Continues to be constipated. Denies dyspepsia, dysphagia or odynophagia. Denies melena, hematochezia, unintentional weight loss or ribbon like stools. [facility] Medical History PAF (paroxysmal atrial fibrillation) Cognitive impairment HLD (hyperlipidemia) HTN (hypertension) Urge incontinence BPH with obstruction/lower urinary tract symptoms Surgical History H/O eye surgery Social History Alcohol intake: current Alcohol intake frequency: former alcohol drinker Patient Tobacco Use Status: Never used Tobacco Review of Systems Const Denies weight gain and Denies weight loss ENT Reports no additional complaints, Denies dysphagia and Denies odynophagia Card Reports no additional complaints Resp Reports no additional complaints GI Reports abdominal pain (Epigastric), Denies belching, Denies melena, Reports bloating, Denies change in bowel habits, Reports constipation, Denies dysphagia, Denies excessive flatus, Denies dyspepsia, Denies heartburn, Denies diarrhea, Denies loose stools, Denies nausea, Denies odynophagia and Denies vomiting Reports no additional complaints Musc Reports no additional complaints Neuro Reports no additional complaints Psych Reports no additional complaints Endo Reports no additional complaints Physical Exam Vital Signs: Last Vital Signs Pulse 62 08/10/23 15:10 BP 146/84 H 08/10/23 15:10 BMI result Body Mass Index 31.0 Const General: healthy appearing, no acute distress and well developed Nutritional Appearance: obese Orientation/consciousness: patient oriented x3 HEENT Head: Yes normal to inspection, Yes normocephalic and Yes atraumatic Face and sinus: Yes normal facial exam Mouth: Normal oral and palatal mucosa present Throat: Yes posterior oropharynx normal, Yes tonsils normal and Yes uvula midline Eyes General: appearance normal, both eyes and all related structures Neck Neck: Yes normal visual inspection, Yes full ROM and Yes trachea midline Thyroid: Thyroid normal Resp Effort & Inspection: normal respiratory effort, able to speak in complete sentences, no tracheal deviation and symmetric chest movement Auscultation: clear to auscultation bilaterally Cardio Rate: regular rate GI Inspection: Yes normal to inspection, No distended and Yes obesity Palpation (GI): Soft to palpation, not firm, nontender and No hepatosplenomegaly present Auscultation: normal bowel sounds General: Yes no CVA tenderness Back/Spine/Pelvis Back: no CVA tenderness Skin General skin exam: elasticity normal, turgor normal and dry skin Neuro General: patient oriented x3 Psych Appearance: grossly normal Mental Status: mental status grossly normal Results Reviewed Results Reviewed: Laboratory Tests 04/26/23 16:21 Stool Pancreat Elastase 306 Laboratory Tests 03/08/23 13:07 Total Bilirubin 1.0 Direct Bilirubin 0.4 AST 21 ALT 14 Lipase 35 Vitamin B12 306 25-OH Vitamin D Total 29 L Folate 13.9 Assessment & Plan Assessment & Plan (1) Nausea: Code(s): R11.0 - Nausea (2) Postprandial abdominal bloating: Code(s): R14.0 - Abdominal distension (gaseous) (3) IBS (irritable bowel syndrome): Code(s): K58.9 - Irritable bowel syndrome without diarrhea Qualifiers: Irritable bowel syndrome type: without diarrhea Qualified Code(s): K58.9 - Irritable bowel syndrome without diarrhea (4) Constipation: Code(s): K59.00 - Constipation, unspecified Qualifiers: Constipation type: slow transit constipation Qualified Code(s): K59.01 - Slow transit constipation Plan Continue pantoprazole daily. Patient will try to avoid taking [place] will each meals. Eating smaller portions and more often. Discussed with patient avoiding dietary triggers and late night snacking. Staying upright for minimum 3 hours after meals discussed with patient. Patient will take senna every evening to help her move his bowels. Patient reports that is effective when he does take it. Patient will return to the office in 3 weeks to discuss going for possible upper endoscopy and maybe colonoscopy. Both patient and his SUPERVISOR BOATBUILDERS WOOD are agreeable to plan of care and verbalizes understanding of instructions. They were given the opportunity to ask questions and all questions answered. Thank you for allowing me to participate in his care Medications: Refilled sennosides (Natural Senna Laxative) 17.2 mg (2 x 8.6 mg) PO BEDTIME 60 tabs 3RF constipation K59.00 - Constipation, unspecified Coding Level of Care Code Est Pt Level 3 (09838) Diagnoses Nausea R11.0 Postprandial abdominal bloating R14.0 Irritable bowel syndrome without diarrhea K58.9 Irritable bowel syndrome type: without diarrhea Slow transit constipation K59.01 Constipation type: slow transit constipation Time Spent (min) 30 Comment 20 minutes spent with patient and additional 10 minutes spent reviewing his records
== END 2023-08-10 16:10 | disposition home or self-care (01) ==
PROVIDERS: PCP Internal Medicine; Visit Provider Nurse Practitioner Family
DX: R11.0 Nausea (principal); R14.0 Abdominal distension (gaseous); K58.9 Irritable bowel syndrome, unspecified; K59.01 Slow transit constipation
CPT/HCPCS: 99213

== ENCOUNTER → 2023-08-10 15:03 | Outpatient (BNVA) | payer MEDICARE, SELFPAY | PROVIDERS: PCP Internal Medicine; Visit Provider Nurse Practitioner Family | DX: R11.0 Nausea (principal); R14.0 Abdominal distension (gaseous); K58.9 Irritable bowel syndrome, unspecified; K59.01 Slow transit constipation | CPT/HCPCS: 99212 ==

== ENCOUNTER 2023-09-01 13:34 | Outpatient (AMB) | payer MEDICARE, SELFPAY ==
--- NOTE | 2023-09-01 13:36 | A.OFFVIS_ITS ---
Vital Signs 09/01/23 13:37 Height 5 ft 6 in Weight 192 lb BMI 31.0 BP 125/71 Blood Pressure Location Lt brachial Position Sitting Pulse 76 Intake Visit Reasons: 3 week follow up Intake Note: Pt presents today for 3wk follow up. Still having nausea/constipation Electron Microscopist Required: Yes Accompanied by: HORSEBACK EXCAVATOR Allergies verapamil [Verapamil] Allergy (Unknown, Verified 09/01/23 13:42) UNKNOWN RIVAS Inhibitors [Rivas Inhibitors] Adverse Reaction (Mild, Verified 09/01/23 13:42) ANGIOEDEMA dust Allergy (Unknown, Uncoded 09/01/23 13:42) Unknown HPI HPI 3 week follow up: Details: LAST VISIT Nausea Postprandial abdominal bloating IBS (irritable bowel syndrome) Constipation Plan Continue pantoprazole daily. Patient will try to avoid taking Meryl-Hext will each meals. Eating smaller portions and more often. Discussed with patient avoiding dietary triggers and late night snacking. Staying upright for minimum 3 hours after meals discussed with patient. Patient will take senna every evening to help her move his bowels. Patient reports that is effective when he does take it. Patient will return to the office in 3 weeks to discuss going for possible upper endoscopy and maybe colonoscopy. Both patient and his HORSEBACK EXCAVATOR are agreeable to plan of care and verbalizes understanding of instructions. They were given the opportunity to ask questions and all questions answered. ? Thank you for allowing me to participate in his care Medications Refilled sennosides (Natural Senna Laxative) 17.2 mg (2 x 8.6 mg) PO BEDTIME 60 tabs 3RF constipation K59.00 TODAY'S VISIT Patient is here today for follow-up. Patient reports that he continues to have constipation and abdominal pain. Patient continues to take Meryl-Hext with each meal as he is afraid that he is going to have a stomach ache when he eats anything. Patient is not taking senna daily. He takes it only when he feels like he is constipated. Patient is accompanied by his HORSEBACK EXCAVATOR. He takes pantoprazole in the morning and famotidine at bedtime. Patient denies dyspepsia, dysphagia or odynophagia. Reports occasional nausea without vomiting. Denies melena, hematochezia, unintentional weight loss or ribbon like stools. [facility] Medical History PAF (paroxysmal atrial fibrillation) Cognitive impairment HLD (hyperlipidemia) HTN (hypertension) Urge incontinence BPH with obstruction/lower urinary tract symptoms Surgical History H/O eye surgery Social History Alcohol intake: current Alcohol intake frequency: former alcohol drinker Patient Tobacco Use Status: Never used Tobacco Review of Systems Const Denies weight gain and Denies weight loss ENT Reports no additional complaints, Denies dysphagia and Denies odynophagia Card Reports no additional complaints Resp Reports no additional complaints GI Reports abdominal pain, Denies belching, Denies melena, Reports bloating, Reports constipation, Denies dysphagia, Denies excessive flatus, Denies dyspepsia, Denies heartburn, Denies diarrhea, Denies loose stools, Reports na usea, Denies odynophagia and Denies vomiting Reports no additional complaints Musc Reports no additional complaints Neuro Reports no additional complaints Psych Reports no additional complaints Endo Reports no additional complaints Physical Exam Vital Signs: Last Vital Signs Pulse 76 09/01/23 13:37 BP 125/71 09/01/23 13:37 BMI result Body Mass Index 31.0 Const General: healthy appearing, no acute distress and well developed Nutritional Appearance: obese Orientation/consciousness: patient oriented x3 Resp Effort & Inspection: normal respiratory effort, able to speak in complete sentences, no tracheal deviation and symmetric chest movement Auscultation: clear to auscultation bilaterally Cardio Rate: regular rate GI Inspection: Yes normal to inspection, No distended and Yes obesity Palpation (GI): Soft to palpation, not firm, nontender and No hepatosplenomegaly present Auscultation: normal bowel sounds General: Yes no CVA tenderness Back/Spine/Pelvis Back: no CVA tenderness Skin General skin exam: elasticity normal, turgor normal and dry skin Neuro General: patient oriented x3 Psych Appearance: grossly normal Mental Status: mental status grossly normal Assessment & Plan Assessment & Plan (1) Nausea: Code(s): R11.0 - Nausea (2) Postprandial abdominal bloating: Code(s): R14.0 - Abdominal distension (gaseous) (3) IBS (irritable bowel syndrome): Code(s): K58.9 - Irritable bowel syndrome without diarrhea Qualifiers: Irritable bowel syndrome type: without diarrhea Qualified Code(s): K58.9 - Irritable bowel syndrome without diarrhea (4) Constipation: Code(s): K59.00 - Constipation, unspecified Qualifiers: Constipation type: slow transit constipation Qualified Code(s): K59.01 - Slow transit constipation Plan Patient continues to have left upper and lower quadrant pain. Occasional constipation. Patient was encouraged to take Senokot every single day to help him move his bowels. Physical exam without any abdominal tenderness. Will send patient for CT scan, unlikely diverticulitis. Most likely pain related to constipation/diverticulosis. Patient was encouraged to increase fluid intake and activity to promote better bowel motility. Patient will continue pantoprazole in the morning and famotidine at bedtime. Continue avoiding dietary triggers and late night snacking. Staying upright for minimum 3 hours after meals discussed with patient. I will see patient in 3 months, sooner on as needed basis. Patient is agreeable to this plan and verbalizes understanding of instructions. He was given the opportunity to ask questions and all questions answered. Thank you for allowing me to participate in his care Orders: Orders Creatinine 09/01/23 R10.11 - Right upper quadrant pain Blood Urea Nitrogen 09/01/23 R10.11 - Right upper quadrant pain CT abdomen pelvis w IV con 09/01/23 R10.9 - Unspecified abdominal pain Coding Level of Care Code Est Pt Level 3 (57611) Diagnoses Nausea R11.0 Postprandial abdominal bloating R14.0 Irritable bowel syndrome without diarrhea K58.9 Irritable bowel syndrome type: without diarrhea Slow transit constipation K59.01 Constipation type: slow transit constipation Time Spent (min) 30 Comment 20 minutes spent with patient and additional 10 minutes spent reviewing his records
[2023-09-01 13:37] VITALS: BP 125/71; PULSE 76; BMI 31.0
== END 2023-09-01 14:48 | disposition home or self-care (01) ==
PROVIDERS: PCP Internal Medicine; Visit Provider Nurse Practitioner Family
DX: R11.0 Nausea (principal); R14.0 Abdominal distension (gaseous); K58.9 Irritable bowel syndrome, unspecified; K59.01 Slow transit constipation
CPT/HCPCS: 99213

== ENCOUNTER → 2023-09-01 13:34 | Outpatient (BNVA) | payer MEDICARE, SELFPAY | PROVIDERS: PCP Internal Medicine; Visit Provider Nurse Practitioner Family | DX: K59.01 Slow transit constipation (principal); R11.0 Nausea; R14.0 Abdominal distension (gaseous); K58.9 Irritable bowel syndrome, unspecified; R10.12 Left upper quadrant pain; R10.32 Left lower quadrant pain | CPT/HCPCS: 99212 ==

== ENCOUNTER 2023-09-21 11:24 | Outpatient (AMB) | payer MEDICARE, SELFPAY ==
--- NOTE | 2023-09-21 11:45 | A.OFFVIS_ITS ---
Intake Visit Reasons: 3 month follow up/ pvr/ US Intake Note: Patient presents today for a follow-up Meds- Finateride & Gemtesa Allergies to Antibiotic- No Known Allergies Blood Thinner- None Post Void Residual: 22mL Vacuum Cleaner Mechanic Required: Yes Vacuum Cleaner Mechanic Language: [place] Information Interpreted: non-clinical & clinical Accompanied by: CAVING GUIDE Allergies verapamil [Verapamil] Allergy (Unknown, Verified 09/21/23 11:45) UNKNOWN RIVAS Inhibitors [Rivas Inhibitors] Adverse Reaction (Mild, Verified 09/21/23 11:45) ANGIOEDEMA dust Allergy (Unknown, Uncoded 09/21/23 11:45) Unknown HPI Comments Details: 09/21/2023--Jewel is here with his CAVING GUIDE. Certified sewer and inspector present. Jewel is being followed due to lower urinary tract symptoms of frequency, urinary incontinence and BPH. The patient states he gets up frequently night about every hour. The CAVING GUIDE noted that the 2 medications prescribed from our office finasteride and Gemtesa are not included in his prepackaged medication package and he has not sure if Jewel is taking the medications consistently on a daily basis. We will follow-up with pharmacy to get this rectified so that he will be compliant on medication use. Urinalysis today negative for blood or leukocytes. The patient did not have renal ultrasound done. In review of the chart CT scan is ordered by another provider so I will not reorder the renal ultrasound. Bladder scan PVR is within normal limits. We will continue finasteride and gemtesa. Follow-up in 6 months. Review of chart: 05/15/2023- Jewel is a 83 year male who is here for evaluation for BPH and urinary incontinence. Past Medical history PAF (paroxysmal atrial fibrillation), Cognitive impairment, Hypertension. The patient complains of daytime urinary frequency every 2-3 hours, he has ocassional urinary incontinence, if he has a strong urge and is not able to get to the bathroom, nocturia 2-4 times, denies hematuria, denies dysuria. I have discussed avoiding dietary bladder irritants, including to cut back on caffeine usage I have discussed workup to include evaluation of the upper tracts and consideration for cystoscopy evaluation. Bladder scan PVR - 0 mL. Plan: Renal US PFSH Medical History PAF (paroxysmal atrial fibrillation) Cognitive impairment HLD (hyperlipidemia) HTN (hypertension) Urge incontinence BPH with obstruction/lower urinary tract symptoms Surgical History H/O eye surgery Social History Alcohol intake: current Alcohol intake frequency: former alcohol drinker Patient Tobacco Use Status: Never used Tobacco Review of Systems Const All systems reviewed & are unremarkable except as noted in HPI and below Reports no additional complaints Eyes Reports no additional complaints ENT Reports no additional complaints Card Reports no additional complaints Resp Reports no additional complaints GI Reports no additional complaints Reports as per HPI Musc Reports no additional complaints Skin/Breast Reports system reviewed and no additional complaints, except as documented Neuro Reports no additional complaints Psych Reports no additional complaints Endo Reports no additional complaints Rei/Lymph Reports no additional complaints Aller/Immun Reports no additional complaints Office Procedures Post Void Residual Post Residual Void Post Void Residual (PVR): 22 [id number] Void Residual by ultrasound Assessment & Plan Assessment & Plan (1) Urge incontinence: Code(s): N39.41 - Urge incontinence Category: Medical (2) BPH with obstruction/lower urinary tract symptoms: Code(s): N40.1 - Benign prostatic hyperplasia with lower urinary tract symptoms; N13.8 - Other obstructive and reflux uropathy Category: Medical Plan Continue Gemtesa and finasteride. Follow-up in 6 months. Orders: Orders AMB Urinalysis Automated Today Z13.9 - Encounter for screening, unspecified AMB Post Void Residual by ultrasound Today N39.8 - Other specified disorders of urinary system Patient Instructions: It is a privilege to be allowed the opportunity to participate in the urologic care of your patient. If you have any questions or concerns regarding treatment for the above conditions please do not hesitate to contact me. The office telephone contact is [phone]. This note is constructed in part using voice recognition software. While every effort has been made to ensure accuracy furnace operator errors may have been included. Yours sincerely, Benitez Ackerman MD Coding Level of Care Code Est Pt Level 3 (89044) Diagnoses Urge incontinence N39.41 BPH with obstruction/lower urinary tract symptoms N40.1; N13.8 CPT Codes Post Residual Void - PVR CPT Code: 67996-Bawn Void Residual by ultrasound ([id number])
== END 2023-09-21 12:08 | disposition home or self-care (01) ==
PROVIDERS: PCP Internal Medicine; Visit Provider Urology
DX: N39.41 Urge incontinence (principal); N40.1 Benign prostatic hyperplasia with lower urinary tract symptoms; N13.8 Other obstructive and reflux uropathy; Z13.9 Encounter for screening, unspecified
CPT/HCPCS: 99213

== ENCOUNTER → 2023-09-21 11:24 | Outpatient (BNVA) | payer MEDICARE, SELFPAY | PROVIDERS: PCP Internal Medicine; Visit Provider Urology | DX: N40.1 Benign prostatic hyperplasia with lower urinary tract symptoms (principal); N13.8 Other obstructive and reflux uropathy; N39.41 Urge incontinence | CPT/HCPCS: 51798; 81003; 99212 ==